=== PATIENT | female | born 2000 | race Hispanic/Latino ===

== ENCOUNTER 2023-09-12 17:39 | Day surgery (SDC) | payer OTHER ==
[2023-09-12 18:09] VITALS: BMI 31.9
[2023-09-12] MEDS ORDERED: hydrALAZINE 20 MG/ML VIAL SLOW IVP PRN (18:27)
[2023-09-12 18:50] LABS: Bilirubin Neg (Negative); Blood, Urine Negative (Negative); Clarity Clear (Clear); Glucose, Urine (Dipstick) Normal (Negative); Ketone, Urine 50 mg/dL (Negative); Leukocyte Negative (Negative); Nitrite Negative (Negative); Protein, Urine (Dipstick) Negative (Neg-Trace); Specific Gravity, Urine 1.015 (1.005-1.030); Urobilinogen Normal mg/dL (Less than 2)
[2023-09-12 18:51] LABS: Fetal Membranes Rupture No Membranes Rupture (No Rupture)
[2023-09-12 19:08] LABS: Bacteria/HPF Rare-Few HPF (None Seen); CAUTI Indications for Culture Pregnancy; RBC/HPF None Seen HPF (0-3); Squamous Epithelial 0-3 HPF (0-3); Urine Culture Reflex Yes Yes; WBC/HPF 0-3 HPF (0-3)
== END 2023-09-12 20:10 | disposition home or self-care (01) ==
LOC: CSHLD/OP 17:39
PROVIDERS: ATTEND Family Medicine
DX: O47.1 False labor at or after 37 completed weeks of gestation (principal); Z79.899 Other long term (current) drug therapy; O99.283 Endocrine, nutritional and metabolic diseases complicating pregnancy, third trimester; E86.0 Dehydration; Z3A.39 39 weeks gestation of pregnancy
CPT/HCPCS: 81001; 84112; 87086; 99285

== ENCOUNTER 2023-09-19 19:00 | Inpatient (IN) | payer MEDICAID, OTHER ==
[2023-09-19] MEDS ORDERED: Promethazine HCl 25 MG/ML VIAL IM PRN (19:54)
[2023-09-19] MEDS ORDERED: Acetaminophen 500 MG TAB PO PRN (19:54)
[2023-09-19] MEDS ORDERED: Methylergonovine 0.2 MG/ML VIAL IM PRN (19:54)
[2023-09-19] MEDS ORDERED: fentaNYL 50 mcg/mL 1 mL Vial SLOW IVP PRN (19:54)
[2023-09-19] MEDS ORDERED: Tranexamic Acid 1,000 MG/10 ML VIAL IVP PRN (19:54)
[2023-09-19] MEDS ORDERED: Lidocaine 1% (PF) 30 ML VIAL SC PRN (19:54)
[2023-09-19] MEDS ORDERED: Carboprost 250 MCG/ML AMP IM PRN (19:54)
[2023-09-19] MEDS ORDERED: Misoprostol 200 MCG TAB PR PRN (19:54)
[2023-09-19] MEDS ORDERED: hydrALAZINE 20 MG/ML VIAL SLOW IVP PRN (19:54)
[2023-09-19] MEDS ORDERED: Ondansetron PF 4 MG/2 ML Vial IVP PRN (19:54)
[2023-09-19] MEDS ORDERED: Diphenoxylate HCl/Atropine Tablet PO PRN (19:54)
[2023-09-19] MEDS ORDERED: HYDROcodone/Acetaminophen 5/325 mg Tablet PO PRN (19:57)
[2023-09-19] MEDS ORDERED: Ibuprofen 800 MG TAB PO PRN (19:57)
[2023-09-19] MEDS ORDERED: Oxytocin 30 units/NS 500 ML 500 ML IV SCH ×3 (20:00)
[2023-09-19 20:10] VITALS: BMI 31.6
[2023-09-19] MEDS: Lactated Ringer's 1,000 ML IV SCH (20:35)
[2023-09-19 20:46] LABS: Hematocrit 32.3 % (34.9-44.5); Hemoglobin 11.3 g/dL (12.0-15.5); Mean Corpuscular Hemoglobin 29.8 pg (27.0-33.0); Mean Corpuscular Volume 85.2 fl (81.6-98.3); Mean Platelet Volume 10.9 fl (7.4-10.4); Platelet Count 260 10x3/uL (150-450); RBC Distribution Width 14.1 % (11.5-14.5); Red Blood Cell (RBC) Count 3.79 10x6/uL (3.90-5.03); White Blood Cell (WBC) Count 7.2 10x3/uL (3.5-10.5)
[2023-09-19] MEDS: Misoprostol 100 MCG TAB PO SCH (20:52)
[2023-09-19 21:18] LABS: HBSAg Index 0.17 S/CO (0-0.99); Hep B Surf Ag - L&D Non-Reactive S/CO (NonReactive)
[2023-09-19 21:20] LABS: Syphilis Antibody Nonreactive (Nonreactive); Syphilis Antibody Index 0.05 S/CO (<1.00 Non-Reactive)
[2023-09-20] MEDS ORDERED: fentaNYL/Ropivacaine Epidural 100 ML ONE (00:49)
[2023-09-20] MEDS: Misoprostol 100 MCG TAB PO SCH ×2 (01:17→01:18)
[2023-09-20] MEDS: Lactated Ringer's 1,000 ML IV SCH ×2 (01:17→08:20)
[2023-09-20] MEDS ORDERED: Moisturizing Cream (Eucerin) 113 GM JAR TOP PRN (01:49)
[2023-09-20] MEDS ORDERED: diphenhydrAMINE 50 MG/ML VIAL IVP PRN (01:49)
[2023-09-20] MEDS ORDERED: Promethazine HCl 25 MG/ML VIAL IM PRN ×2 (01:49→14:34)
[2023-09-20] MEDS ORDERED: Ondansetron PF 4 MG/2 ML Vial IVP PRN ×2 (01:49→14:34)
[2023-09-20] MEDS ORDERED: Naloxone HCl 0.4 mg/ml Vial IVP PRN ×2 (01:49)
[2023-09-20] MEDS ORDERED: ePHEDrine Sulfate 50 MG/10 ML VIAL SLOW IVP PRN (01:49)
[2023-09-20] MEDS ORDERED: Acetaminophen 325 MG TAB PO PRN (01:49)
[2023-09-20] MEDS ORDERED: Lactated Ringer's 500 ML IV PRN (01:49)
[2023-09-20] MEDS ORDERED: fentaNYL 2 mcg/Ropivacaine 0.2% Epidural 100 ML CADD EPIDURAL SCH (02:00)
[2023-09-20] MEDS ORDERED: Communication Order-Pharmacy FS SCH (02:00)
[2023-09-20] MEDS ORDERED: Bupivacaine 0.25% HCL 30 ML VIAL ONE (13:00)
[2023-09-20] MEDS ORDERED: Lanolin Ointment 7 GM TUBE TOP PRN (14:34)
[2023-09-20] MEDS ORDERED: Benzocaine-Menthol 82.5 ML CAN TOP PRN (14:34)
[2023-09-20] MEDS ORDERED: Bisacodyl 10 MG SUPP PR PRN (14:34)
[2023-09-20] MEDS ORDERED: diphenhydrAMINE 25 MG CAP PO PRN (14:34)
[2023-09-20] MEDS ORDERED: HYDROcodone/Acetaminophen 5/325 mg Tablet PO PRN (14:34)
[2023-09-20] MEDS ORDERED: Boostrix 0.5 ML (Tdap) VIAL (>/=7 yrs of age) IM ONE (14:34)
[2023-09-20] MEDS ORDERED: Milk Of Magnesia 30 ML UDCUP PO PRN (14:34)
[2023-09-20] MEDS ORDERED: hydrALAZINE 20 MG/ML VIAL SLOW IVP PRN (14:34)
[2023-09-20] MEDS: Ibuprofen 800 MG TAB PO SCH ×2 (14:55→21:44)
[2023-09-20] MEDS: Ferrous Sulfate 325 MG TAB PO SCH (19:10)
[2023-09-20] MEDS: Docusate 100 MG CAP PO SCH (21:44)
[2023-09-21] MEDS: Ibuprofen 800 MG TAB PO SCH (05:50)
[2023-09-21] MEDS: Ferrous Sulfate 325 MG TAB PO SCH (07:03)
[2023-09-21 07:51] VITALS: BP 109/65; TEMP 97.7
[2023-09-21] MEDS: Docusate 100 MG CAP PO SCH (08:11)
[2023-09-21] MEDS ORDERED: Prenatal Vitamin 1 TAB PO SCH (09:00)
== END 2023-09-21 13:40 | disposition home or self-care (01) | DRG 807 ==
LOC: CSHLD 19:51 → CSHPP 09-20 14:14
PROVIDERS: ADMIT Family Medicine; ATTEND Family Medicine
PROC: 10E0XZZ Delivery of Products of Conception, External Approach (ICD-10-PCS; principal; 2023-09-20)
PROC: 10907ZC Drainage of Amniotic Fluid, Therapeutic from Products of Conception, Via Natural or Artificial Opening (ICD-10-PCS; 2023-09-20)
PROC: 3E0P7VZ Introduction of Hormone into Female Reproductive, Via Natural or Artificial Opening (ICD-10-PCS; 2023-09-20)
DX: O80 Encounter for full-term uncomplicated delivery (principal); Z37.0 Single live birth; Z3A.39 39 weeks gestation of pregnancy
CPT/HCPCS: 36415; 51702; 85027; 86780; 86850; 86900; 86901; 87340; J2590; J7120; S0020